=== PATIENT | male | born 1955 | race Caucasian/White ===

== ENCOUNTER 2021-05-21 14:51 | Inpatient (IN) | payer BC, SELFPAY ==
[2021-05-21] VITALS (36 sets, daily range): BP systolic 109–176; BP diastolic 66–94; PULSE 60–106; RESP 0–27; TEMP 36.6; O2SAT 91–99; BMI 27.1
--- NOTE | 2021-05-21 14:54 | ECG_ITS ---
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 Measurements Intervals [place] Rate: 105 P: 23 [place]: 178 QRS: -3 QRSD: 86 T: 33 QT: 335 QTc: 444 Interpretive Statements SINUS TACHYCARDIA MINIMAL ST DEPRESSION [0.025+ mV ST DEPRESSION Compared to ECG 04/10/2015 08:59:16 ST (T wave) deviation now present Sinus rhythm no longer present Sinus arrhythmia no longer present Electronically Signed On 05-21-2021 22:10:20 CDT by Reynold Box M.D. [id number]
--- NOTE | 2021-05-21 15:03 | XACV_ITS ---
Ht: 173 cm Wt: 93 kg BSA: 2.14 m2 Gender: Male : 1955 Any Known Allergies: Sulfa Exam Priority: Routine Procedure(s): Procedure Description: Diagnostic procedure Procedure Description: Left Heart Catheterization Diagnostic Cath Status: Emergency Diagnostic Findings * Left Main has no disease. * Left Anterior Descending has no disease. * Circumflex has no disease. * Proximal Left Anterior Descending: medium aneurysm. * Proximal Right Coronary Artery: significant 80% stenosis, GREGORY: 3 flow. * Distal Right Coronary Artery: subtotal occlusion, GREGORY: 3 flow. * Coronary angiography shows right dominance. Interventional Findings * Proximal Right Coronary Artery: 80% stenosis treated with a AB TREK 3.00X15 RX BALLOON, MDLucero R LATRELL 4.0X12 LYSSA, and MDLucero RAMON EUPHORA RX 4.90K20DB BALLOON. 0% residual stenosis, GREGORY: 3 flow. * Distal Right Coronary Artery: 99% stenosis treated with a AB TREK 3.00X15 RX BALLOON, and MDT R LATRELL 3.5X15 LYSSA. 0% residual stenosis, GREGORY: 3 flow. Conclusions 1. There is subtotal occlusion coronary artery disease with one vessel disease. 2. Proximal Right Coronary Artery was treated with a Balloon, Drug Eluting Stent, and Balloon. 3. Distal Right Coronary Artery was treated with a Balloon, and Drug Eluting Stent. 4. There appeared to be no left main and possible separate ostium. Please note that due to tortuosity and not well engagement of catheter subselective thoughts were taken. Proximal mid and distal LAD no significant stenosis however there appeared to be ectasia in the proximal LAD. Diagonal appeared to be without any significant stenosis. Proximal and mid left circumflex appeared to have luminal irregularity. Please note that due to patient not being cooperative I stop the procedure here as primary culprit lesion in the proximal and distal RCA was treated with drug-eluting stents.. Recommendations * 1-Return to inpatient for close monitoring and routine cath care2-Risk factor modification for secondary prevention3-Statin with LDL goal <70 mg/dl, aspirin 81 mg [id number]-Abzzcox was pre-loaded with 180mg of Brillinta. Continue Brillinta 90mg p.o. twice daily for at least one year. We will assess at the end of one year again to continue it further or not5-Continue optimal medical management6-Follow up with Dr. Bui in four weeks and with your PCP in one week. Diagnostic RX Recommendation: PCI w/o planned CABG Pressures Phase:Rest AO : 118 / 75 ( 96 ) @ 2:28:00 PM 115 / 72 ( 93 ) @ 2:34:00 PM Clinical Evaluation EBL: 5mL-10mL Procedural Details Admit Source: Emergency department. Pre-Procedure Time Out. Identified patient by full name and date of as verbalized by the patient/guarantor. Does the consent match the physician's order: N/A Emergent. Accurate & Complete Informed Consent: N/A Emergent. Inpatient/Outpatient History & Physical on Chart: N/A Emergent. If H&P is completed, is and addenduem needed: N/A Emergent; If yes, is the addendum complete: N/A Emergent. Visualize and Verify Site with Patient/Guarantor: N/A. Relevant Radiology Images available: N/A Emergent. Pre-op teaching completed and patient verbalized understanding. The risks, benefits, and alternatives of sedation and/or procedure were discussed by physician. The patient agrees to continue. Procedure started. Correct patient, site and procedure confirmed by cath team. PERRLA. Strong, equal hand bean roaster bilaterally. Lungs clear x 5 lobes. IV Site on Arrival: 18 gauge in the right anticubital. Oxygen started at 2liters/min via nasal canula. bilateral groins was prepped with chloroprep then draped in the usual sterile fashion. right radial was prepped with chloroprep then draped in the usual sterile fashion. Physician notified. Baseline sample Acquired. HR: 92 BPM. Physician arrived. Physician scrubbed in. Immediate Pre-Procedure Time Out. Correct Patient: Yes; Correct Procedure: Yes; Correct Site: Yes; Correct Patient Position: Yes; Correct Supplies: Yes; Dried Flammable Prep: Yes; Blood Products Available: N/A;. Lidocaine 1% infiltrated to the right radial. Arterial access obtained. A 6 stateless TIG catheter in over wire. Multiple views taken of right coronary artery. Catheter out. A 6 stateless JR4 catheter in over wire. AP pads applied to patient. [place] guidewire was advanced through the guide catheter to lesion in the distal RCA. Inflation number : 1 A AB TREK 3.00X15 RX BALLOON was prepped and advanced across the Dist RCA , then inflated to 14 ROCIO for 0:14 seconds. Inflation number: 1 The AB TREK 3.00X15 RX BALLOON was reinflated across the Prox RCA, to 14 ROCIO for 0:10 seconds. Inflation number: 2 The AB TREK 3.00X15 RX BALLOON was reinflated across the Prox RCA, to 14 ROCIO for 0:10 seconds. Balloon out. Inflation Number : 2 A MDT R LATRELL 3.5X15 LYSSA -Lot Number# [id number] exp date: 02-19-2024 was prepped and advanced across the Dist RCA. The stent was deployed at 12 ROCIO for 0:18 seconds. Stent balloon out over wire. Results checked. Cruz Hughes RN updated . Inflation Number : 3 A MDT R LATRELL 4.0X12 LYSSA -Lot Number# [id number] exp date: 12-05-2022 was prepped and advanced across the Prox RCA. The stent was deployed at 10 ROCIO for 0:20 seconds. Stent balloon out over wire. Inflation number : 4 A MDT NC EUPHORA RX 4.27C40LG BALLOON was prepped and advanced across the Prox RCA , then inflated to 12 ROCIO for 0:11 seconds. Inflation number: 6 The MDT NC EUPHORA RX 4.68E03LS BALLOON was reinflated across the Prox RCA, to 12 ROCIO for 0:30 seconds. checking results. Balloon out. Wire out. A 6 stateless JL4 catheter in over wire. ACT drawn. Results 249 seconds. Therapeutic limits - pre-heparin administration 90-150 seconds and monitoring heparin during a vascular procedure >250 seconds. Multiple views taken of left coronary artery. Catheter out. A 6 stateless Sebastian catheter in over wire. Catheter out. TR band placed. Hemostasis obtained. Post Procedure: Pulses reassessed and unchanged. PERRLA. Strong, equal hand bean roaster bilaterally. No VTE prophylaxis required. Medication's Wasted: Lidocaine 1% = 16 mL. Medication's Wasted: Heparin = 2000 units. Medication's Wasted: Nitro = 49.8 mg. Medication's Wasted: Other = fentanyl 50 mg. Total IV fluids: 67 mL. Contrast type used: Omnipaque 300 mgI/mL, 500 mL bottle. Contrast Material : Omnipaque 318 ml. Complications: none. PCI Indication: STEMI. Post-op diagnosis: severe dist RCA stenosis. Estimated blood loss: 5mL-10mL. Procedure completed. A TR Band was successful obtaining hemostatsis at the Right Radial artery insertion site. Patient transferred by wheelchair to CPRU. Vital chart was stopped. Access Site Site: Right Radial artery Sheath Size: 6 Fr Hemostasis Method: TR Band Hemostasis Success: Successful Procedure Medications Start: 3:13 PM Stop: 3:13 PM Medication: Brilinta Amount: 180 mg Route: P.O. Start: 3:14 PM Stop: 3:14 PM Medication: Versed Amount: 1 mg Route: I.V. Start: 3:14 PM Stop: 3:14 PM Medication: Fentanyl Amount: 50 mcg Route: I.V. Start: 3:16 PM Stop: 3:16 PM Medication: Versed Amount: 1 mg Route: I.V. Start: 3:17 PM Stop: 3:17 PM Medication: Nitrogylcerin Amount: 200 mcg Route: I.A. Start: 3:17 PM Stop: 3:17 PM Medication: Heparin Amount: 6000 units Route: I.V. Start: 3:22 PM Stop: 3:22 PM Medication: Heparin Amount: 3000 units Route: I.V. Start: 3:26 PM Stop: 3:26 PM Medication: Aggrastat 12.5 mg/250 mL Amount: 47 ml Route: I.V. bolus Start: 3:27 PM Stop: 3:27 PM Medication: Versed Amount: 1 mg Route: I.V. Start: 3:27 PM Stop: 3:27 PM Medication: Fentanyl Amount: 50 mcg Route: I.V. Start: 3:29 PM Stop: 3:29 PM Medication: Aggrastat 12.5 mg/250 mL Amount: 16.9 ml/hr Route: I.V. drip Start: 3:34 PM Stop: 3:34 PM Medication: Versed Amount: 1 mg Route: I.V. Start: 3:43 PM Stop: 3:43 PM Medication: Fentanyl Amount: 50 mcg Route: I.V. Start: 3:45 PM Stop: 3:45 PM Medication: Versed Amount: 1 mg Route: I.V. Start: 3:59 PM Stop: 3:59 PM Medication: Versed Amount: 1 mg Route: I.V. I, the attending physician, have reviewed and verified all procedure medications. Yes, all medications given per verbal order Report Signatures Finalized by Jaymie Bui MD on 06/03/2021 10:24 PM
--- NOTE | 2021-05-21 15:04 | ED_ITS ---
HPI - Chest Pain General: Chief Complaint: Chest Pain Stated Complaint: stemi alert Time Seen by Provider: 05/21/21 14:54 History of Present Illness: HPI narrative: 65-year-old male history of hypertension presents by EMS with chest pain. States pain started 3 AM. This pressure-like does not radiate into the back. Does report some shortness of breath. Denies fever nausea or vomiting. Per EMS EKG reveals inferior STEMI. Patient was given nitroglycerin and full strength aspirin prior to call to ER was made. Instructed them not to give further nitro. 500 cc bolus of normal saline provided. Patient is otherwise hemodynamically stable. On arrival to the ER patient complains of continued chest pain. Review of Systems Narrative: - CONSTITUTIONAL: Denies weight loss, fever and chills. - HEENT: Denies changes in vision and hearing. - RESPIRATORY: Denies SOB and cough. - CV: As above - GI: Denies abdominal pain, nausea, vomiting and diarrhea. - : Denies dysuria and urinary frequency. - MSK: Denies myalgia and joint pain. - SKIN: Denies rash and pruritus. - NEUROLOGICAL: Denies headache, weakness, numbness and syncope. - PSYCHIATRIC: Denies suicidal ideation Physical Exam Narrative: EXAM NARRATIVE: - GENERAL: Alert and oriented x 3. No acute distress. Well-nourished. - EYES: EOMI. Anicteric. - HENT: Atraumatic, no C-spine tenderness. Moist mucous membranes. No scleral icterus. No cervical lymphadenopathy. - LUNGS: Clear to auscultation bilaterally. No accessory muscle use. Equal lung sounds bilaterally. No respiratory distress. - CARDIOVASCULAR: Regular rate and rhythm. No murmur. No JVD. - ABDOMEN: Soft, non-tender and non-distended. Negative CVA tenderness bilaterally, no rebound or guarding, negative Crawford sign. No palpable masses. - EXTREMITIES: No edema. Non-tender. - SKIN: No rashes or lesions. Warm. - NEUROLOGIC: No meningismus or focal neurological deficits. CN II-XII grossly intact. - PSYCHIATRIC: Cooperative. Appropriate mood and affect. Course Vital Signs: Vital signs: Vital Signs Pulse Rate 97 05/21/21 14:59 Respiratory Rate 18 05/21/21 14:59 Blood Pressure 130/80 05/21/21 14:59 Pulse Oximetry 97 05/21/21 14:59 MDM - Chest Pain MDM Narrative: Medical decision making narrative: 65-year-old male history of hypertension presents with chest pain by EMS. EKG by EMS concerning for inferior STEMI. Aspirin provided in route. Upon arrival nitroglycerin was already provided and EMS were instructed not to provide for nitroglycerin. He is he medically stable afebrile nontoxic-appearing. Complains of pressure-like chest pain. EKG by EMS is concerning for inferior STEMI. Discussed with cardiology who came by to evaluate patient at bedside and will take him to Warehouse Operations Manager. Remainder of lab work ordered. Also per cardiology recommendation Brilinta was ordered. Further evaluation management per cardiology team. EKG Data^: EKG 1: Other EKG comments: ST elevations in 2 3 and aVF with anterior depressions, concerning for inferior STEMI. Critical Care Time Critical Care Time: Critical Care Time: Yes Total Critical Care Time: 30 Attestation: This case had a high probability of a clinically significant, sudden, or life threatening deterioration of this patient's condition which required my full and direct attention, intervention and personal management. 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
[2021-05-21 15:26] LABS: Basophils # 0.1 10^3/uL (0.0-0.1); Basophils % 0.5 %; Eosinophils % 0.2 %; Hematocrit 40.6 % (42.0-52.0); Hemoglobin 13.6 g/dL (11.7-16.6); Lymphocytes # 1.4 10^3/uL (0.8-4.8); Lymphocytes % 10.4 %; Mean Corpuscular HGB Conc 33.5 g/dL (30.0-36.0); Mean Corpuscular Hemoglobin 29.4 pg (28.0-34.0); Mean Corpuscular Volume 87.9 fl (80-94); Monocytes # 0.9 10^3/uL (0.2-0.9); Monocytes % 6.4 %; Neutrophils # 11.18 10^3/uL (1.8-7.7); Neutrophils % 82.1 %; Nucleated Red Blood Cells % 0 %; Platelet Count 260 10^3/cmm (130-400); Red Blood Count 4.62 10^6/uL (4.1-5.3); Red Cell Distribution Width 12.5 % (12.1-15.1); White Blood Count 13.6 10^3/uL (4.0-10.0)
[2021-05-21 15:38] LABS: INR 1.03 (0.8-1.2)
[2021-05-21 15:39] LABS: Partial Thromboplastin Time 25.4 SECONDS (23.9-36.7)
[2021-05-21 15:47] LABS: Troponin(5th) Baseline 25 ng/L (0-15)
[2021-05-21 16:13] LABS: Alanine Aminotransferase 35 U/L (0-41); Albumin Level 4.5 g/dL (3.5-5.2); Alkaline Phosphatase 54 IU/L (40-130); Aspartate Amino Transferase 30 U/L (0-40); Blood Urea Nitrogen 32 mg/dL (8-23); Calcium 9.6 mg/dL (8.5-10.5); Carbon Dioxide 21 mmol/L (22-29); Chloride 102 mmol/L (98-107); Globulin 2.9 g/dL (1.3-4.6); Glomerular Filtration Rate 33.8 mL/min (90-130); Glucose 214 mg/dL (65-115); NT Pro B Type Natriuretic Pept 124 pg/mL (0-125); Osmolality Calculated 303 mOsm/kg (285-295); Sodium 140 mmol/L (136-145); Total Bilirubin 0.6 mg/dL (0.15-1.2); Total Protein 7.4 g/dL (6.6-8.7)
--- NOTE | 2021-05-21 16:15 | PC.NURSE ---
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 Pt attached to bedside monitor. Pt is alert and oriented, denies pain. TR band to right wrist, site asymptomatic. radial pulse palpable. Pt educated on right arm restrictions. at bedside.
--- NOTE | 2021-05-21 16:54 | ECG_ITS ---
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 Measurements Intervals [place] Rate: 80 P: 33 [place]: 204 QRS: -19 QRSD: 88 T: 15 QT: 373 QTc: 432 Interpretive Statements SINUS RHYTHM LOW QRS VOLTAGE IN PRECORDIAL LEADS [QRS DEFLECTION < 1.0 mV IN CHEST LEADS] ST ELEVATION, CONSIDER INFERIOR INJURY [MARKED ST ELEVATION W/O NORMALLY INFLECTED T-WAVE IN II/aVF] ACUTE ME Compared to ECG 05/21/2021 14:56:41 Low QRS voltage now present Myocardial infarct finding now present Sinus tachycardia no longer present ST (T wave) deviation still present Electronically Signed On 05-21-2021 22:20:56 CDT by Reynold Box M.D. [id number]
--- NOTE | 2021-05-21 19:19 | PM.HP ---
Providers/Chief Complaint Primary Care Provider: Kelsey Vázquez APN Chief Complaint: stemi alert History of Present Illness Thee Chan is a 65 year old male past medical history significant for continuous tobacco abuse obesity strong family history of coronary artery disease denies diabetes mellitus presented with off-and-on chest pain with become more consistent for the last couple of hours it is the reason patient activated 911. Initial EKG strip by EMS showed ST elevation in the inferior leads with reciprocal changes. It is the reason ST elevation OK was activated I saw immediately patient in the ER at that time he continues to have chest pain but EKG changes were resolved most likely secondary to nitroglycerin. He was taken emergently to the Academic Affairs Dean he was noted to have significant 99% thrombotically occluded distal RCA and 85% proximal eccentric RCA. Proximal and distal stent was placed, proximal stent was postdilated with noncompliant balloon. Excellent GREGORY-3 flow was restored. Due to severe tortuosity left main was not well engaged however it appeared to me that patient has LAD and circumflex ostium. LAD is ectatic but without significant disease diagonal vessel is without significant disease circumflex not well visualized however appears to have no significant stenosis. Since we have fixed the culprit vessels patient appeared to be stable and because the fact he is given contrast we decided to finish the procedure. He was loaded with ticagrelor started on Aggrastat and transferred to CSU. He was noted to have high creatinine 2.0 therefore will continue IV fluid 100 mL/h for next 24 hours. Will repeat Chem-7 in the morning I will ask for echocardiogram in the morning as well to assess LV function. Review of Systems Narrative: - CONSTITUTIONAL: Denies weight loss, fever and chills. - HEENT: Denies changes in vision and hearing. - RESPIRATORY: Denies SOB and cough. - CV: As above - GI: Denies abdominal pain, nausea, vomiting and diarrhea. - : Denies dysuria and urinary frequency. - MSK: Denies myalgia and joint pain. - SKIN: Denies rash and pruritus. - NEUROLOGICAL: Denies headache, weakness, numbness and syncope. - PSYCHIATRIC: Denies suicidal ideation Vitals/I&O/Wt Last Vital Signs Pulse 70 05/21/21 18:01 Resp 24 H 05/21/21 17:30 BP 142/91 05/21/21 17:30 Pulse Ox 97 05/21/21 18:01 Weight last 48 hrs Weight 200 lb Physical Exam Narrative: EXAM NARRATIVE: GENERAL: Patient is alert, awake and oriented x3. NECK: No jugular vein distension. HEENT: No cyanosis. No icterus. No pallor. HEART: Regular S1 and S2. No murmur, rub or gallop. LUNGS: Clear to auscultate bilaterally. ABDOMEN: Soft, nontender and nondistended. Positive bowel sounds. No guarding, rebound or tenderness. CENTRAL NERVOUS SYSTEM: Grossly nonfocal. EXTREMITIES: Lower extremities without edema bilaterally. Data : 05/21/21 15:05 05/21/21 15:05 A&P Assessment and plan (1) ST elevation myocardial infarction (STEMI): Status: Acute Qualifiers: Involved coronary artery: right coronary artery Qualified Code(s): I21.11 - ST elevation (STEMI) myocardial infarction involving right coronary artery (2) Acute renal failure (ARF): Patient has acute on chronic renal failure admitted with baseline creatinine of 2.0. We will continue IV fluid at 1 mL/h for next 24 hours. Will ask for Chem-7 in the morning. Patient baseline creatinine is unknown however this was at the time of presentation to therefore I resume that he has underlying renal disease Status: Acute Qualifiers: Acute renal failure type: with other specified pathological lesion Qualified Code(s): N17.8 - Other acute kidney failure Additional A&P Information As above patient underwent urgent left heart cath noted to have proximal and distal RCA which were the culprit vessel treated with 2 drug-eluting stent. Continue aspirin statin and beta-triston over next 24 hours will ask for echocardiogram. 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
[2021-05-21 20:07] LABS: Glucose Point of Care 130 mg/dL (70-110)
--- NOTE | 2021-05-21 20:54 | ECG_ITS ---
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1955 Requested By: Phillip Pantoja Order Number: [id number] Reading MD: ISAC RICHARDS Measurements Intervals [place] Rate: 62 P: 30 [place]: 219 QRS: -22 QRSD: 93 T: 36 QT: 424 QTc: 431 Interpretive Statements SINUS RHYTHM WITH FIRST DEGREE AV BLOCK BORDERLINE LEFT AXIS DEVIATION [QRS AXIS < -20] Compared to ECG 05/21/2021 16:46:01 First degree AV block now present ST (T wave) deviation no longer present Myocardial infarct finding no longer present Electronically Signed On 05-22-2021 20:03:58 CDT by ISAC RICHARDS [email or web address] [email or web address].[employer]/store/OM/[id number]
[2021-05-22] VITALS (24 sets, daily range): BP systolic 123–161; BP diastolic 73–94; PULSE 55–72; RESP 2–24; TEMP 36.3–36.8; O2SAT 90–98
[2021-05-22] MEDS: sodium chloride 0.9% 1,000 ML 100 ML IV ×2 (00:03→09:52)
[2021-05-22 04:50] LABS: Basophils # 0.1 10^3/uL (0.0-0.1); Basophils % 0.7 %; Eosinophils # 0.4 10^3/uL (0.0-0.8); Eosinophils % 4.7 %; Hematocrit 37.9 % (42.0-52.0); Hemoglobin 12.8 g/dL (11.7-16.6); Lymphocytes # 1.8 10^3/uL (0.8-4.8); Lymphocytes % 24.8 %; Mean Corpuscular HGB Conc 33.8 g/dL (30.0-36.0); Mean Corpuscular Hemoglobin 29.5 pg (28.0-34.0); Mean Corpuscular Volume 87.3 fl (80-94); Mean Platelet Volume 10.7 fL (7.4-10.4); Monocytes # 0.8 10^3/uL (0.2-0.9); Monocytes % 11.1 %; Neutrophils # 4.29 10^3/uL (1.8-7.7); Neutrophils % 58.3 %; Nucleated Red Blood Cells % 0 %; Platelet Count 215 10^3/cmm (130-400); Red Blood Count 4.34 10^6/uL (4.1-5.3); Red Cell Distribution Width 12.4 % (12.1-15.1); White Blood Count 7.4 10^3/uL (4.0-10.0)
[2021-05-22 05:10] LABS: Anion Gap 14.4 (5-19); Blood Urea Nitrogen 28 mg/dL (8-23); Carbon Dioxide 22 mmol/L (22-29); Chloride 102 mmol/L (98-107); Glomerular Filtration Rate 43.7 mL/min (90-130); Glucose 103 mg/dL (65-115); Osmolality Calculated 286 mOsm/kg (285-295); Potassium 3.4 mmol/L (3.5-5.1); Sodium 135 mmol/L (136-145)
[2021-05-22 06:25] LABS: Glucose Point of Care 116 mg/dL (70-110)
--- NOTE | 2021-05-22 08:25 | PC.CHAP ---
Pastoral Care Encounter/Spiritual Assessment Type of Contact [] Declined junk dealer visit [] Patient/Family/Request visit [] Outpatient visit [] Follow-up visit [] Physician referral [] Code/Alert [x] Routine visit [] Staff referral [] Actively dying [] Patient sleeping [] Family support [] [] Out of room [] Palliative care [] [] Receiving care in room [] Pre-surgical visit [] Trauma [] Long length of stay [] ICU visit [] Other: Relational/Emotional Strength [x] Patient feels connected with others/family/visitors/staff [] Distress [] Loneliness/isolation [] Abandonment Spirituality of Patient [x] Person of Soco [] Attends Zoroastrianism of their Soco [] Believes in Prayer [] Reads Bible or Anglican materials [] There are Spiritual issues to be addressed Mannequin Wig Maker Interventions [] Prayer [x] Active listening [x] Non-anxious presence [x] Spiritual/emotional support [] Crisis/trauma care [] Spiritual counseling [] Bereavement support [] Provided bereavement packet [] Provided Bible/devotional materials [] Provided toy/stuffed animal, coloring book to patient or family member [] Provided Communion [] Anointing/[place] [] Salvation [x] Completed spiritual assessment [] Other: Impact on Illness or Injury [] Angry [] Fearful [] Anxious [] Often cries [] Exhaustion [] Unable to work [] Unable to attend muslim [] Unable to walk/stand [] Unable to read [] Unable to drive [] Unable to eat/drink [] Unable to sleep [] Unable to be with family [] Patient intubated [] Other: Summary Pt had heart attack yesterday while at work and was rushed to hospital. Had two stints put in. Feeling much better today and hoping to go home. Pt has a family history of heart attack and lost two brothers at a relative young age due to heart. Has family in area who are concerned about it and has made contact with him while in hospital. Pt stated he is a person of soco and prepared for when it comes. The conversation was cut short as staff arrived for treatment. Time spent with patient 10m
--- NOTE | 2021-05-22 08:33 | PC.PHAR ---
pt states he takes care of his own medications-pt states he just started taking olmesartan 5mg hs rx filled on 05/18/21 5d/s-pt states he takes metformin 500mg bid ext med history shows last filled on 01/10/21 30d/s for 1000mg bid-notes are made in the pharmacy comments
--- NOTE | 2021-05-22 09:01 | USCV_ITS ---
Dustin Thee Age: 65 Gender: M : 1955 Exam Date: 05/22/2021 20:31 Ordering Phys: Jaymie Bui MD ([email or web address]) Technologist: Arianna Price Exam Location: [facility] [place] Indication: STEMI BP: 133 / 81 HR: 63 Rhythm: Sinus Technical Quality: Fair MEASUREMENTS (Male / Female) Normal Values 2D ECHO LV Diastolic Diameter PLAX 4.4 cm 4.2 - 5.9 / 3.9 - 5.3 cm LV Systolic Diameter PLAX 3.1 cm LV Chamber Size 4.6 cm IVS Diastolic Thickness 1.5 cm 0.6 - 1.0 / 0.6 - 0.9 cm IVS Systolic Thickness 1.3 cm LVPW Diastolic Thickness 1.1 cm 0.6 - 1.0 / 0.6 - 0.9 cm LVPW Systolic Thickness 1.4 cm RV Chamber Size 2.0 cm LVOT Diameter 2.0 cm LV Ejection Fraction 2D Teich 57.9 % LA Diameter 3.6 cm LA Width 2.9 cm LA Height 5.1 cm RA Width 2.0 cm RA Height 4.5 cm Aorta at Sinotubular Diameter 2.8 cm M-MODE LV Diastolic Diameter MM 5.0 cm 4.2 - 5.9 / 3.9 - 5.3 cm LV Systolic Diameter MM 3.2 cm LV Ejection Fraction MM Teich 64.9 % IVS Diastolic Thickness MM 1.2 cm 0.6 - 1.0 / 0.6 - 0.9 cm IVS Systolic Thickness MM 1.5 cm LVPW Diastolic Thickness MM 0.9 cm 0.6 - 1.0 / 0.6 - 0.9 cm LVPW Systolic Thickness MM 1.3 cm RV Diastolic Diameter MM 1.4 cm Aortic Annulus Diameter 3.0 cm LA Ao Ratio MM 1.5 MV E Point Septal Separation 0.6 cm DOPPLER AV Peak Velocity 114.0 cm/s LVOT Peak Velocity 83.0 cm/s AV Area Cont Eq vti 2.5 cm squared AV Area Cont Eq pk 2.4 cm squared MV Area PHT 3.7 cm squared Mitral E to A Ratio 0.8 MV E' Velocity 31.0 cm/s Mitral E to MV E' Ratio 7.2 Mitral E to LV E' Lateral Ratio 7.5 Mitral E to LV E' Septal Ratio 7.0 TV Peak E Velocity 40.0 cm/s Right Atrial Pressure 3.0 mmHg PV Peak Velocity 45.0 cm/s RV Acceleration Time 0.1 s RV Ejection Time 0.3 s RV AcT/ET 0.3 FINDINGS Left Ventricle Normal left ventricular cavity size. Normal left ventricular systolic function. There appeared to be inferior wall hypokinesis.left ventricular ejection fraction is estimated at 55 %. Grade I/IV diastolic dysfunction (abnormal relaxation filling pattern), normal to mildly elevated filling pressures. Right Ventricle The right ventricle is normal in size and function. RVSP could not be calculated due to incomplete tricuspid regurgitation velocity profile. Right Atrium The right atrium is normal in size. Left Atrium The left atrium is normal in size. Mitral Valve Thickened mitral valve. No mitral valve stenosis. Mild mitral valve regurgitation. Aortic Valve Mild aortic valve calcification. No aortic valve stenosis. No aortic valve regurgitation. Tricuspid Valve Mild tricuspid valve regurgitation. Pulmonic Valve Structurally normal pulmonic valve without significant stenosis. There is no pulmonic regurgitation. Pericardium Normal pericardium without effusion. Aorta Normal ascending aorta dimension. CONCLUSIONS 1-Normal left ventricular cavity size. Normal left ventricular systolic function. There appeared to be inferior wall hypokinesis.left ventricular ejection fraction is estimated at 55 %. Grade I/IV diastolic dysfunction (abnormal relaxation filling pattern), normal to mildly elevated filling pressures. 2-No significant valve abnormalities. 3-There is no pericardial effusion. 4-The right ventricle is normal in size and function. RVSP could not be calculated due to incomplete tricuspid regurgitation velocity profile. 5-Right atrial pressure is around 5 mm of mercury. 6-There are no prior echocardiogram studies to compare. Jaymie Bui MD (Electronically Signed) Final Date: 22 May 2021 20:12 S
--- NOTE | 2021-05-22 09:05 | PM.PN ---
Subjective Subjective: Interval history: Status post 2 drug-eluting stent in proximal distal RCA for ST elevation CO. Culprit lesion was distal RCA with thrombus in it. No overnight event he is feeling much better this morning. Medications: Reviewed: Yes Vitals/I&O/Wt Last Vital Signs Temp 97.6 F 05/22/21 03:26 Pulse 63 05/22/21 06:00 Resp 17 05/22/21 03:26 BP 133/81 05/22/21 03:26 Pulse Ox 96 05/22/21 03:26 05/21/21 05/22/21 05/22/21 22:59 06:59 14:59 Intake Total 240 / 240 240 / 480 Output Total 350 / 350 Balance 240 / 240 -110 / 130 Weight last 48 hrs Weight 200 lb Physical Exam Narrative: EXAM NARRATIVE: GENERAL: Patient is alert, awake and oriented x3. NECK: No jugular vein distension. HEENT: No cyanosis. No icterus. No pallor. HEART: Regular S1 and S2. No murmur, rub or gallop. LUNGS: Clear to auscultate bilaterally. ABDOMEN: Soft, nontender and nondistended. Positive bowel sounds. No guarding, rebound or tenderness. CENTRAL NERVOUS SYSTEM: Grossly nonfocal. EXTREMITIES: Lower extremities without edema bilaterally. Data : 05/22/21 04:30 05/22/21 04:30 A&P Assessment and plan (1) ST elevation myocardial infarction (STEMI): Status post drug-eluting stent to proximal and distal RCA, nonobstructive coronary disease of the left side system with ectasia in the LAD otherwise no significant lesion noted except separate ostium and difficult engagement. Will add beta-triston EUGENIO inhibitor, we will continue aspirin statin and ticagrelor. Echocardiogram to assess LV function lipid profile will be also today Status: Acute Qualifiers: Involved coronary artery: right coronary artery Qualified Code(s): I21.11 - ST elevation (STEMI) myocardial infarction involving right coronary artery (2) Acute renal failure (ARF): Continue IV fluid creatinine started improving from 2.0-1.6 today. Will hold onto EUGENIO inhibitor for now Status: Acute Qualifiers: Acute renal failure type: with other specified pathological lesion Qualified Code(s): N17.8 - Other acute kidney failure Additional A&P Information As above patient underwent urgent left heart cath noted to have proximal and distal RCA which were the culprit vessel treated with 2 drug-eluting stent. Continue aspirin statin and beta-triston over next 24 hours will ask for echocardiogram. Continue ticagrelor for next at least 1 year per the plan repairs as per progress of the patient Attestations Medical Necessity Statement*: Patient require continuation hospitalization for above defined care. Coding Level of Care Code Established Pt Acute Battery Charger Conveyor Line for Keira Martin Patient Type Established History Detailed Exam Detailed Medical Decision Making Moderate Complexity Diagnoses ST elevation myocardial infarction (STEMI) I21.11 Involved coronary artery: right coronary artery Acute renal failure (ARF) N17.8 Acute renal failure type: with other specified pathological lesion
[2021-05-22 09:23] LABS: Chol HDL Ratio 7.92 mg/dL (1.0-5.00); Cholesterol 206 mg/dL (0-200); HDL Cholesterol 26 mg/dL (60-100); LDL Cholesterol Calculated 144 mg/dL (50-129); LDL HDL Ratio 5.54 RATIO (0.00-3.22); Triglycerides 181 mg/dL (0-150)
[2021-05-22] MEDS: ticagrelor 90 mg Tablet PO ×2 (09:50→18:20)
[2021-05-22] MEDS: aspirin 81 mg EC Tablet PO (09:51)
[2021-05-22] MEDS: metoprolol succinate ER (24 HR) 25 mg Tablet 12.5 MG PO (09:51)
[2021-05-22] MEDS: potassium chloride ER 20 mEq Tablet PO (09:51)
[2021-05-22] MEDS: magnesium hydroxide 30 mL UDC PO (18:20)
[2021-05-22] MEDS: atorvastatin 40 mg Tablet 80 MG PO (20:19)
[2021-05-22] MEDS: sodium chloride 0.9% 1,000 ML 75 ML IV (20:20)
[2021-05-23 04:00] VITALS: BP 148/85; PULSE 71; RESP 14; O2SAT 97
[2021-05-23 04:01] VITALS: PULSE 64
[2021-05-23 06:29] LABS: Anion Gap 11.7 (5-19); Blood Urea Nitrogen 23 mg/dL (8-23); Calcium 8.8 mg/dL (8.5-10.5); Carbon Dioxide 24 mmol/L (22-29); Chloride 100 mmol/L (98-107); Glucose 113 mg/dL (65-115); Osmolality Calculated 278 mOsm/kg (285-295); Potassium 3.7 mmol/L (3.5-5.1); Sodium 132 mmol/L (136-145)
[2021-05-23 08:00] VITALS: BP 174/84; PULSE 68; RESP 18; O2SAT 97
[2021-05-23] MEDS: ticagrelor 90 mg Tablet PO (09:57)
[2021-05-23] MEDS: metoprolol succinate ER (24 HR) 25 mg Tablet 12.5 MG PO (09:58)
[2021-05-23] MEDS: aspirin 81 mg EC Tablet PO (09:58)
--- NOTE | 2021-05-23 10:18 | PC.CHAP ---
Pastoral Care Encounter/Spiritual Assessment Type of Contact [] Declined planning manager visit [] Patient/Family/Request visit [] Outpatient visit [] Follow-up visit [] Physician referral [] Code/Alert [x] Routine visit [] Staff referral [] Actively dying [] Patient sleeping [x] Family support [] [] Out of room [] Palliative care [] [] Receiving care in room [] Pre-surgical visit [] Trauma [] Long length of stay [] ICU visit [] Other: Relational/Emotional Strength [] Patient feels connected with others/family/visitors/staff [] Distress [] Loneliness/isolation [] Abandonment Spirituality of Patient [x] Person of Soco [] Attends Restorationist of their Soco [] Believes in Prayer [] Reads Bible or Anglican materials [] There are Spiritual issues to be addressed Brazer Resistance Interventions [x] Prayer [x] Active listening [x] Non-anxious presence [x] Spiritual/emotional support [] Crisis/trauma care [] Spiritual counseling [] Bereavement support [] Provided bereavement packet [] Provided Bible/devotional materials [] Provided toy/stuffed animal, coloring book to patient or family member [] Provided Communion [] Anointing/[place] [] Salvation [x] Completed spiritual assessment [] Other: Impact on Illness or Injury [] Angry [] Fearful [] Anxious [] Often cries [] Exhaustion [] Unable to work [] Unable to attend scientology [] Unable to walk/stand [] Unable to read [] Unable to drive [] Unable to eat/drink [] Unable to sleep [] Unable to be with family [] Patient intubated [] Other: Summary patient feeling stronger... truly likes his doctor.. was allowed to stay over night so both rested well.... Time spent with patient 10 min
--- NOTE | 2021-05-23 12:07 | PM.DCS ---
Discharge Providers Date of Admission: 05/21/21 15:28 Date of Discharge: May 23, 2021 Attending Provider at Admission: Jaymie Bui MD Attending Provider at Discharge: Jaymie Bui MD Primary Care Provider: Kelsey Vázquez APN Diagnoses at Discharge Discharge Diagnosis (1) ST elevation myocardial infarction (STEMI): Status: Acute Qualifiers: Involved coronary artery: right coronary artery Qualified Code(s): I21.11 - ST elevation (STEMI) myocardial infarction involving right coronary artery (2) Acute renal failure (ARF): Status: Acute Qualifiers: Acute renal failure type: with other specified pathological lesion Qualified Code(s): N17.8 - Other acute kidney failure Reason for Visit Reason for Visit: stemi alert Hospital Course Hospital Course 65-year-old male past medical history significant of hypertension hyperlipidemia diabetes mellitus strong family's of coronary disease presented with stuttering chest pain ST elevation CO on the EMS strip later resolved in the ER was taken to the Diplomatic Interpreter/Translator he was noted to have significant distal RCA thrombotic lesion which was 90% occluded along with 80% proximal eccentric stenosis with GREGORY-3 flow. Both lesions were treated with drug-eluting stent. Excellent angiographic result was obtained. LAD and circumflex has an eccentric takeoff with a separate ostium LAD appear to be ectatic vessel but without significant stenosis circumflex was subselectively engaged not well seen in the proximal segment however the mid to distal segment did not show significant stenosis but good flow. Left ventricular ejection fraction turned out to be normal with mild inferior wall hypokinesis. Patient was noted to have renal failure with baseline creatinine of 2.0. Over the next 2 days he was given IV fluid medication were titrated creatinine today is around 1.4 which has been improved. At this point he is doing much better denies any complaint we will discharge him. For now I will discontinue hydrochlorothiazide I will switch from diltiazem to carvedilol, aspirin and Brilinta was given along with high-dose statin. We will monitor his blood pressure as per home log. We will see him back in the clinic in 7 days with Ms. Gina Vergara our cardiology nurse practitioner and with myself in 4 to 6 weeks. Right wrist looks good. He will be going to discharge today. Physical Exam Narrative: EXAM NARRATIVE: GENERAL: Patient is alert, awake and oriented x3. NECK: No jugular vein distension. HEENT: No cyanosis. No icterus. No pallor. HEART: Regular S1 and S2. No murmur, rub or gallop. LUNGS: Clear to auscultate bilaterally. ABDOMEN: Soft, nontender and nondistended. Positive bowel sounds. No guarding, rebound or tenderness. CENTRAL NERVOUS SYSTEM: Grossly nonfocal. EXTREMITIES: Lower extremities without edema bilaterally. Discharge Data Data Completed and Pending: Completed Studies During Hospitalization Category Date Time Status CV. 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 request for service Stat Exams 05/21/21 15:03 Taken Labs from last 24 hours 05/23/21 05:55 Sodium 132 L Potassium 3.7 Chloride 100 Carbon Dioxide 24 Anion Gap 11.7 BUN 23 Creatinine 1.4 H GFR Calculation 51.0 L Glucose 113 Calculated Osmolal ity 278 L Calcium 8.8 Vitals: Last Vital Signs Temp 98.3 F 05/22/21 23:40 Pulse 68 05/23/21 08:00 Resp 18 05/23/21 08:00 BP 174/84 05/23/21 08:00 Pulse Ox 97 05/23/21 08:00 Discharge Plan Discharge Patient Disposition: Home Condition: Stable Prescriptions: New aspirin 81 mg Tablet,Delayed Release (Dr/Ec) 81 mg PO DAILY Qty: 90 RF: 4 Brilinta 90 mg Tablet 90 mg PO BID Qty: 60 RF: 6 atorvastatin 40 mg Tablet 80 mg PO BEDTIME Qty: 30 RF: 4 pantoprazole 40 mg tablet,delayed release (DR/EC) 40 mg PO DAILY 56 Days RF: 2 amlodipine 5 mg tablet 5 mg PO DAILY Qty: 30 RF: 4 carvedilol [Coreg] 6.25 mg tablet 6.25 mg PO BID Qty: 60 RF: 3 Continued metformin 500 mg tablet 500 mg PO BID RF: 0 montelukast 10 mg tablet 10 mg PO QAM RF: 0 olmesartan 5 mg tablet 5 mg PO BEDTIME RF: 0 Discontinued ibuprofen 800 mg tablet 800 mg PO TID PRN (Reason: Pain) RF: 0 diltiazem HCl 180 mg capsule,extended release 24hr 180 mg PO QAM RF: 0 Aspir-81 81 mg Tablet,Delayed Release (Dr/Ec) 81 mg PO QAM RF: 0 triamterene-hydrochlorothiazid 37.5-25 mg tablet 1 tab PO QAM RF: 0 Discharge Orders: Discharge Order (Routine); Ordered 05/23/21 Ordered By: Jaymie Bui Discharge Diet: Diabetic and Low Salt Discharge Activity: Increase activity as tolerated Patient Instructions: Ticagrelor (By mouth), Myocardial Infarction (DC), Left Heart Catheterization (DC), Coronary Angioplasty (DC), Opioid Safety, Post Angiogram Home Care Instructions, Post Heart Attack Stoplight Activity Restrictions/Additional Instructions: No lifting with right hand for next Discharge Attestations Time Spent in Discharge Care*: greater than 30 min Specific Discharge Activities: educating patient Quality Metrics Clinical Quality Measures During this hospital stay, did patient experience: AMI Clinical Trial Participant: No Contraindication to aspirin (AMI): Aspirin given Contraindication to statin: Statin prescribed Coding Level of Care Code Acute g DC note Diagnoses ST elevation myocardial infarction (STEMI) I21.11 Involved coronary artery: right coronary artery Acute renal failure (ARF) N17.8 Acute renal failure type: with other specified pathological lesion
[2021-05-23 12:24] VITALS: BP 174/84; PULSE 68; RESP 18; O2SAT 97
--- NOTE | 2021-05-23 12:49 | PC.NURSE ---
discharge instructions given and explained.pt verb understanding of instructions.coupon for brilinta and stent card given.pt ambulated to exit.spouse to drive pt home.
--- NOTE | 2021-05-24 14:21 | PC.SOCIAL ---
discharge follow up call made, spoke with patient. patient denies chest pain or shortness of breath. reports he is feeling good. patient denies swelling, drainage or redness from incision, reports you can barely see it patient picked up medications from the pharmacy and is taking as prescribed. he didn't receive pantoprazole, development writer called pantoprazole into pharmacy as prescribed on discharge orders. patient is aware of discontinued medications. patient has follow up appointment dates and times written down. advised patient to avoid lifting for the next week. patient denies any questions or concerns.
== END 2021-05-23 12:52 | disposition home or self-care (01) | DRG 247 ==
LOC: ER 14:58 → CCL 15:05 → CSU 17:48
PROVIDERS: Family Medicine; Admitting Provider Internal Medicine Cardiovascular Disease; Emergency Provider Emergency Medicine; PCP Nurse Practitioner Family; Visit Provider Internal Medicine Cardiovascular Disease
PROC: 027035Z Dilation of Coronary Artery, One Artery with Two Drug-eluting Intraluminal Devices, Percutaneous Approach (ICD-10-PCS; principal; 2021-05-21 14:45)
PROC: 027035Z Dilation of Coronary Artery, One Artery with Two Drug-eluting Intraluminal Devices, Percutaneous Approach (ICD-10-PCS; 2021-05-21 14:45)
DX: I21.11 ST elevation (STEMI) myocardial infarction involving right coronary artery (principal); N17.9 Acute kidney failure, unspecified; F17.210 Nicotine dependence, cigarettes, uncomplicated; E66.9 Obesity, unspecified; Z68.27 Body mass index [BMI] 27.0-27.9, adult; Z82.49 Family history of ischemic heart disease and other diseases of the circulatory system; I25.10 Atherosclerotic heart disease of native coronary artery without angina pectoris
CPT/HCPCS: 36415; 36416; 80048; 80053; 80061; 82553; 82962; 83880; 84484; 85025; 85347; 85610; 85730; 93005; 93306; 93454; 99285; C1725; C1769; C1874; C1887; C1894; C9600; J1644; J2250; J3010; J3246; J3490; J7030; J7040; Q9967

== ENCOUNTER → 2021-05-30 14:24 | Outpatient (BNVA) | payer BC, SELFPAY | PROVIDERS: PCP Nurse Practitioner Family; Visit Provider Nurse Practitioner Family | DX: I25.119 Atherosclerotic heart disease of native coronary artery with unspecified angina pectoris (principal); I10 Essential (primary) hypertension | CPT/HCPCS: 80048 ==

== ENCOUNTER → 2021-06-25 10:29 | Outpatient (BNVA) | payer BC, SELFPAY | PROVIDERS: PCP Nurse Practitioner Family; Visit Provider Nurse Practitioner Family | DX: Z20.822 Contact with and (suspected) exposure to COVID-19 (principal); R05.9 Cough, unspecified; R50.83 Postvaccination fever; T50.B95A Adverse effect of other viral vaccines, initial encounter; J40 Bronchitis, not specified as acute or chronic | CPT/HCPCS: 87635 ==

== ENCOUNTER → 2021-07-25 08:26 | Outpatient (BNVA) | payer BC, SELFPAY | PROVIDERS: PCP Nurse Practitioner Family; Visit Provider Nurse Practitioner Family | DX: J06.9 Acute upper respiratory infection, unspecified (principal); J40 Bronchitis, not specified as acute or chronic; R05.9 Cough, unspecified | CPT/HCPCS: 71046; 80053 ==

== ENCOUNTER → 2021-11-01 09:44 | Outpatient (BNVA) | payer MEDICARE, OTHER, SELFPAY | PROVIDERS: PCP Nurse Practitioner Family; Visit Provider Nurse Practitioner Family | DX: Z12.5 Encounter for screening for malignant neoplasm of prostate (principal); E78.5 Hyperlipidemia, unspecified; E11.9 Type 2 diabetes mellitus without complications; I10 Essential (primary) hypertension | CPT/HCPCS: 80053; 80061; 83036; G0103 ==

== ENCOUNTER → 2021-11-05 14:02 | Outpatient (BNVA) | payer MEDICARE, OTHER, SELFPAY | PROVIDERS: PCP Nurse Practitioner Family; Visit Provider Internal Medicine | DX: I25.119 Atherosclerotic heart disease of native coronary artery with unspecified angina pectoris (principal); I10 Essential (primary) hypertension; E78.49 Other hyperlipidemia; Z87.891 Personal history of nicotine dependence | CPT/HCPCS: 99214 ==

== ENCOUNTER → 2022-01-09 17:12 | Outpatient (BNVA) | payer MEDICARE, OTHER, SELFPAY | PROVIDERS: PCP Nurse Practitioner Family; Visit Provider Nurse Practitioner Family | DX: M54.50 Low back pain, unspecified (principal); N18.9 Chronic kidney disease, unspecified; M54.9 Dorsalgia, unspecified | CPT/HCPCS: 80053 ==

== ENCOUNTER → 2022-02-04 08:50 | Outpatient (BNVA) | payer MEDICARE, OTHER, SELFPAY | PROVIDERS: PCP Nurse Practitioner Family; Visit Provider Nurse Practitioner Family | DX: Z11.52 Encounter for screening for COVID-19 (principal); R05.9 Cough, unspecified; E11.9 Type 2 diabetes mellitus without complications; E78.5 Hyperlipidemia, unspecified; I10 Essential (primary) hypertension; I21.3 ST elevation (STEMI) myocardial infarction of unspecified site; J06.9 Acute upper respiratory infection, unspecified; J40 Bronchitis, not specified as acute or chronic; E78.49 Other hyperlipidemia | CPT/HCPCS: 80053; 80061; 83036; 87635 ==

== ENCOUNTER → 2022-02-19 08:23 | Outpatient (BNVA) | payer MEDICARE, OTHER, SELFPAY | PROVIDERS: PCP Nurse Practitioner Family; Visit Provider Nurse Practitioner Family | DX: M54.9 Dorsalgia, unspecified (principal); M25.552 Pain in left hip; M25.551 Pain in right hip; M54.30 Sciatica, unspecified side | CPT/HCPCS: 73502; 73522 ==

== ENCOUNTER → 2022-04-03 14:54 | Outpatient (BNVA) | payer MEDICARE, OTHER, SELFPAY | PROVIDERS: PCP Nurse Practitioner Family; Visit Provider Internal Medicine | DX: I25.119 Atherosclerotic heart disease of native coronary artery with unspecified angina pectoris (principal); I10 Essential (primary) hypertension; E78.49 Other hyperlipidemia | CPT/HCPCS: 99214 ==

== ENCOUNTER → 2022-05-10 10:29 | Outpatient (BNVA) | payer MEDICARE, OTHER, SELFPAY | PROVIDERS: PCP Nurse Practitioner Family; Visit Provider Nurse Practitioner Family | DX: E11.9 Type 2 diabetes mellitus without complications (principal); E78.5 Hyperlipidemia, unspecified; I10 Essential (primary) hypertension; I21.3 ST elevation (STEMI) myocardial infarction of unspecified site; I95.9 Hypotension, unspecified | CPT/HCPCS: 80053; 80061; 83036 ==

== ENCOUNTER → 2022-08-20 17:44 | Outpatient (BNVA) | payer MEDICARE, OTHER, SELFPAY | PROVIDERS: PCP Nurse Practitioner Family; Visit Provider Nurse Practitioner Family | DX: M25.552 Pain in left hip (principal); M25.751 Osteophyte, right hip; M25.752 Osteophyte, left hip; M54.32 Sciatica, left side; E11.9 Type 2 diabetes mellitus without complications; E78.5 Hyperlipidemia, unspecified; I10 Essential (primary) hypertension; I21.3 ST elevation (STEMI) myocardial infarction of unspecified site; E78.49 Other hyperlipidemia | CPT/HCPCS: 80053; 80061; 83036 ==

== ENCOUNTER 2022-09-26 07:38 | Emergency (ER) | payer MEDICARE, OTHER, SELFPAY ==
[2022-09-26 07:46] VITALS: BP 208/99; PULSE 54; RESP 15; TEMP 36.6; O2SAT 99; BMI 29.2
--- NOTE | 2022-09-26 08:01 | ECG_ITS ---
[facility] Test Date: 2022-09-26 Pat Name: Thee Chan Department: Room: Gender: Male Wrapper Sheeter: : 1955 Requested By: Phillip Pantoja Order Number: [id number] Jerrod MD: Hortensia Carias M.D. Measurements Intervals [place] Rate: 53 P: 42 NE: 212 QRS: -28 QRSD: 96 T: 70 QT: 444 QTc: 418 Interpretive Statements SINUS BRADYCARDIA WITH FIRST DEGREE AV BLOCK BORDERLINE LEFT AXIS DEVIATION [QRS AXIS < -20] NONSPECIFIC ST & T-WAVE ABNORMALITY Compared to ECG 05/22/2021 04:22:08 T-wave abnormality now present Sinus rhythm no longer present Electronically Signed On 09-26-2022 8:24:53 JUSTICE PROFESSOR by Hortensia Carias M.D. [id number]
--- NOTE | 2022-09-26 08:01 | XR_ITS ---
WS: [id number] Portable AP upright chest, 09/26/2022 Clinical Data: dyspnea/cough Comparison: Two-view chest, 07/25/2021 Findings: No nodules, masses or effusions are seen. The heart is normal. The pulmonary vascularity is not increased. No pneumonia or pneumothorax is seen. The aortic arch and descending thoracic aorta s how minimal tortuosity and calcification. There are monitor leads on the chest wall. XR/XR chest 1V portable [id number] Impression: Atherosclerosis.
[2022-09-26 08:09] LABS: Basophils % 0.7 %; Eosinophils # 0.2 10^3/uL (0.0-0.8); Eosinophils % 3.2 %; Hematocrit 40.6 % (42.0-52.0); Hemoglobin 13.2 g/dL (11.7-16.6); Lymphocytes # 2.1 10^3/uL (0.8-4.8); Lymphocytes % 37.2 %; Mean Corpuscular HGB Conc 32.5 g/dL (30.0-36.0); Mean Corpuscular Hemoglobin 28.4 pg (28.0-34.0); Mean Corpuscular Volume 87.3 fl (80-94); Mean Platelet Volume 10.2 fL (7.4-10.4); Monocytes # 0.5 10^3/uL (0.2-0.9); Monocytes % 8.5 %; Neutrophils # 2.82 10^3/uL (1.8-7.7); Nucleated Red Blood Cells % 0 %; Platelet Count 207 10^3/cmm (130-400); Red Blood Count 4.65 10^6/uL (4.1-5.3); Red Cell Distribution Width 13.8 % (12.1-15.1); White Blood Count 5.6 10^3/uL (4.0-10.0)
[2022-09-26 08:13] VITALS: BP 208/99
[2022-09-26] MEDS: hyDRALAzine 20 mg/mL INJ 1 mL IVP (08:13)
[2022-09-26] MEDS: losartan 50 mg Tablet 100 MG PO (08:13)
[2022-09-26] MEDS: hydroCHLOROthiazide 25 mg Tablet PO (08:14)
[2022-09-26] MEDS: amlodipine 10 mg Tablet PO (08:14)
[2022-09-26] MEDS: hyDRALAzine 25 mg Tablet 50 MG PO (08:14)
--- NOTE | 2022-09-26 08:26 | ED_ITS ---
HPI - Headache General: Chief Complaint: Headache Stated Complaint: High blood pressure Time Seen by Provider: 09/26/22 08:00 Source: patient Mode of arrival: ambulatory History of Present Illness: 66-year-old male presents to the emergency room complaining of a pounding headache that started a week ago. He took aspirin and Tylenol this morning but he did not take any of his antihypertensives at he did at 2 AM take 5 mg of nebivolol he did not take any of his other blood pressure medications he is not having any chest pain at this time his biggest complaint is that of a headache no difficulty his speech swallowing or vision. No shortness of breath no recent fever sweats or chills vomiting or [id number] medication occasions decongestants or nasal sprays. No trauma or falls recently. MD elicited complaint: headache Onset (ago): week(s) Onset description: gradually Location: diffuse Quality & Timing: throbbing and pulsatile Exacerbating factors: none Relieving factors: nothing Associated symptoms: Deny chest pain, confusion, cough, diaphoresis, eye pain, eye redness, fever(s), lightheadedness, loss of vision, malaise, nausea, neck stiffness, numbness, paresthesias, photophobia, pre-syncope, rash, seizures, short of breath, sound sensitivity, syncope, vomiting or weakness Treatments prior to arrival: other (Nebivolol 5 mg (Bystolic)) Review of Systems Const: Denies: fever(s), malaise or diaphoresis ENMT: Denies: throat pain, ear or mastoid pain, nasal discharge or nasal congestion Card: Denies: chest pain, lightheadedness, syncope or pre-syncope Resp: Denies: dyspnea, productive cough or non-productive cough GI: Denies: nausea or vomiting : Denies: flank pain, dysuria, urinary frequency or urinary urgency Skin/Breast: Denies: rash Neuro: Denies: confusion PFSH ED PFSH: Medical History Coronary artery disease Diabetes mellitus Hyperlipidemia Hypertension Surgical History S/P right coronary artery (RCA) stent placement Family History Mother Myocardial infarction Brother Myocardial infarction Father Myocardial infarction CHF (congestive heart failure) Son Myocardial infarction Other Diabetes Hypertension Social History Smoking and tobacco status: never smoked Alcohol intake: never Physical Exam Const: GENERAL APPEARANCE: cooperative and comfortable ORIENTATION/CONSCIOUSNESS: Yes awake, Yes oriented to person, Yes oriented to place and Yes oriented to time HENMT: COMMON NORMALS: normocephalic, atraumatic and hearing grossly normal bi laterally HEAD & SCALP: normocephalic and atraumatic Eye: DIRECT OPHTHALMOSCOPY: No photophobia Resp: COMMON NORMALS: normal respiratory effort, No retractions, No use of accessory muscles and clear to auscultation bilaterally AUSCULTATION: clear to auscultation bilaterally Cardio: COMMON NORMALS: regular rate, regular rhythm and No murmurs present (Cardio) RATE: regular rate RHYTHM: regular rhythm GI: COMMON NORMALS: Soft to palpation and No hepatosplenomegaly present AUSCULTATION: Yes normoactive bowel sounds PALPATION: Yes Soft to palpation, No Tenderness to palpation present (GI), No Guarding due to palpation present (GI) and Yes No hepatosplenomegaly present Extremity: COMMON NORMALS: normal to inspection, capillary refill normal, no clubbing, cyanosis or edema, no calf tenderness and no pedal edema Neuro: SENSORIUM/ORIENTATION: Yes oriented to person, Yes oriented to place and Yes oriented to time Skin: COMMON NORMALS: no rashes or lesions noted GENERAL SKIN EXAM: no rashes or lesions noted Course Vital Signs: Vital signs: Vital Signs Temperature 97.8 F 09/26/22 07:46 Pulse Rate 68 09/26/22 09:00 Respiratory Rate 13 09/26/22 09:00 Blood Pressure 156/75 09/26/22 09:00 Pulse Oximetry 98 09/26/22 09:00 Oxygen Delivery Me thod 09/26/22 07:46 MDM - Headache Medical Decision Making Blood pressure improved with medications given patient has had a significant change in his medicine list from what we first reviewed when he came to the door after the pharmacy scheduler and seen him he would then switch from carvedilol to Bystolic he was also on olmesartan he did stop the hydralazine and all the other medications we noted when he initially arrived. He states that with those were stopped because he was getting hypotensive. He is pretty significantly hypertensive when he arrived here. Labs imaging and EKG were all reviewed in chart no acute changes noted on EKGs. Will have him continue the olmesartan and the nebivolol. Add amlodipine 10 mg daily follow-up with his doctor within the week. Medical Records I reviewed the patient's medical records. Lab Data I reviewed the patient's lab results. 09/26/22 08:03 09/26/22 08:03 Radiology Impressions Chest X-Ray 09/26/22 08:01 Impression: Atherosclerosis. Head CT 09/26/22 08:42 IMPRESSION: 1. No acute intracranial hemorrhage or edema. 2. Mild atrophy and small vessel ischemic disease. 3. Moderate atherosclerotic calcified plaque in the vertebral arteries and intracranial carotid arteries. Laboratory Results WBC 5.6 10^3/uL (4.0-10.0) 09/26/22 08:03 RBC 4.65 10^6/uL (4.1-5.3) 09/26/22 08:03 Hgb 13.2 g/dL (11.7-16.6) 09/26/22 08:03 Hct 40.6 % (42.0-52.0) L 09/26/22 08:03 MCV 87.3 fl (80-94) 09/26/22 08:03 MCH 28.4 pg (28.0-34.0) 09/26/22 08:03 MCHC 32.5 g/dL (30.0-36.0) 09/26/22 08:03 RDW 13.8 % (12.1-15.1) 09/26/22 08:03 Plt Count 207 10^3/cmm (130-400) 09/26/22 08:03 MPV 10.2 fL (7.4-10.4) 09/26/22 08:03 Neut % (Auto) 50.0 % 09/26/22 08:03 Lymph % (Auto) 37.2 % 09/26/22 08:03 Osborne % (Auto) 8.5 % 09/26/22 08:03 Eos % (Auto) 3.2 % 09/26/22 08:03 Baso % (Auto) 0.7 % 09/26/22 08:03 Neut # (Auto) 2.82 10^3/uL (1.8-7.7) 09/26/22 08:03 Lymph # (Auto) 2.1 10^3/uL (0.8-4.8) 09/26/22 08:03 Osborne # (Auto) 0.5 10^3/uL (0.2-0.9) 09/26/22 08:03 Eos # (Auto) 0.2 10^3/uL (0.0-0.8) 09/26/22 08:03 Baso # (Auto) 0.0 10^3/uL (0.0-0.1) 09/26/22 08:03 Nucleated RBC % (auto) 0 % 09/26/22 08:03 Nucleated RBCs # 0.0 /100WBC 09/26/22 08:03 Sodium 140 mmol/L (136-145) 09/26/22 08:03 Potassium 3.5 mmol/L (3.5-5.1) 09/26/22 08:03 Chloride 104 mmol/L (98-107) 09/26/22 08:03 Carbon Dioxide 24 mmol/L (22-29) 09/26/22 08:03 Anion Gap 15.5 (5-19) 09/26/22 08:03 BUN 15 mg/dL (8-23) 09/26/22 08:03 Creatinine 1.2 mg/dL (0.7-1.2) 09/26/22 08:03 GFR Calculation 60.8 mL/min (90-130) L 09/26/22 08:03 Glucose 108 mg/dL (65-115) 09/26/22 08:03 Calculated Osmolality 291 mOsm/kg (285-295) 09/26/22 08:03 Calcium 9.1 mg/dL (8.5-10.5) 09/26/22 08:03 Total Bilirubin 1.2 mg/dL (0.15-1.2) 09/26/22 08:03 AST 19 U/L (0-40) 09/26/22 08:03 ALT 15 U/L (0-41) 09/26/22 08:03 Alkaline Phosphatase 71 U/L (40-130) 09/26/22 08:03 Total Protein 7.6 g/dL (6.6-8.7) 09/26/22 08:03 Albumin 4.4 g/dL (3.5-5.2) 09/26/22 08:03 Globulin 3.2 g/dL (1.3-4.6) 09/26/22 08:03 Discharge Plan Discharge Patient Disposition: Home Clinical Impression: Hypertension Condition: Stable Prescriptions: New amlodipine 10 mg tablet 10 mg PO DAILY Qty: 30 0RF Discontinued amlodipine 2.5 mg tablet 2.5 mg PO DAILY 90 Days Qty: 90 0RF No Action triamcinolone acetonide 0.5 % cream 1 applic topical BID Qty: 15 2RF fexofenadine-pseudoephedrine [Amanda-D 12 Hour] 60-120 mg tablet extended release 12 hr 1 tab PO Q12H PRN (Reason: allergy symptoms) 15 Days Qty: 30 0RF Brilinta 90 mg tablet 90 mg PO BID Qty: 60 6RF aspirin 81 mg tablet,delayed release (DR/EC) 81 mg PO DAILY Qty: 90 4RF atorvastatin 80 mg tablet 80 mg PO BEDTIME Qty: 90 4RF hydrocodone-acetaminophen 5-325 mg tablet 1 tab PO Q6H PRN (Reason: pain) 7 Days Qty: 20 0RF albuterol sulfate [ProAir HFA] 90 mcg/actuation HFA aerosol inhaler 2 puff inhalation QID PRN (Reason: shortness of breath or wheezing) Qty: 8.5 0RF alprazolam 0.5 mg tablet 0.5 mg PO BID PRN (Reason: anxiety) Qty: 60 0RF Bystolic 10 mg Tablet 10 mg PO DAILY olmesartan 40 mg tablet 40 mg PO BEDTIME Discharge Orders: Discharge ED (Routine); Ordered 09/26/22 Ordered By: Phillip Malone Referrals: Arianna Priest NP [Primary Care Provider] - Patient Instructions: Opioid Safety, Pain Management Activity Restrictions/Additional Instructions: You were seen today for elevated blood pressure. Blood pressure responded well to the medications given. See the medication list on your discharge sheet for the medications you should be taking. Follow-up with your primary care doctor within the week to recheck your blood pressure. Your lab test and imaging and EKGs were otherwise unremarkable. Coding Level of Care Code ED Core Blower for Chg Fwd Exam Comprehensive
[2022-09-26 08:29] LABS: Alanine Aminotransferase 15 U/L (0-41); Albumin Level 4.4 g/dL (3.5-5.2); Alkaline Phosphatase 71 U/L (40-130); Anion Gap 15.5 (5-19); Aspartate Amino Transferase 19 U/L (0-40); Blood Urea Nitrogen 15 mg/dL (8-23); Calcium 9.1 mg/dL (8.5-10.5); Carbon Dioxide 24 mmol/L (22-29); Chloride 104 mmol/L (98-107); Globulin 3.2 g/dL (1.3-4.6); Glomerular Filtration Rate 60.8 mL/min (90-130); Glucose 108 mg/dL (65-115); Osmolality Calculated 291 mOsm/kg (285-295); Potassium 3.5 mmol/L (3.5-5.1); Sodium 140 mmol/L (136-145); Total Bilirubin 1.2 mg/dL (0.15-1.2); Total Protein 7.6 g/dL (6.6-8.7)
--- NOTE | 2022-09-26 08:42 | CT_ITS ---
WS: [id number] CT HEAD NONCONTRAST HISTORY: Elevated blood pressure headache x1 week TECHNIQUE: Contiguous axial imaging performed through the brain in 2.5 mm imaging. Bone and soft tiss ue windows. Sagittal and coronal reformats reviewed. All CT scans at [facility] use at least one of these dose optimization techniques: automated exposure control; mA and/or kV adjustment per pa tient size (includes targeted exams where dose is matched to clinical indication); or iterative recon struction. DLP: 1091.18 mGy.cm COMPARISON: None available. No acute intracranial hemorrhage, midline shift or mass effect. Mild atrophy and mild small vessel ischemic disease in the periventricular white matter. No prior inf arct. Small arachnoid cyst anterior LEFT middle cranial fossa. Ventricles: Normal size with no hydrocephalus. Calcification is scattered throughout the vertebral arteries and also moderately throughout the intra cranial carotid arteries. Paranasal sinuses: As visualized are clear. Mastoid air cells: Well pneumatized. Calvarium and scalp: Skull is intact with no soft tissue edema or swelling. CT/CT head wo con* [id number] IMPRESSION: 1. No acute intracranial hemorrhage or edema. 2. Mild atrophy and small vessel ischemic disease. 3. Moderate atherosclerotic calcified plaque in the vertebral arteries and int racranial carotid arteries.
[2022-09-26 09:00] VITALS: BP 156/75; PULSE 68; RESP 13; O2SAT 98
--- NOTE | 2022-09-26 09:20 | PC.NURSE ---
PT PLACED ON CONTINUOUS NIBP, SPO2, AND CM
[2022-09-26 09:46] VITALS: BP 129/79; PULSE 68; RESP 19; O2SAT 99
== END 2022-09-26 09:48 | disposition home or self-care (01) ==
PROVIDERS: Emergency Provider Family Medicine; PCP Nurse Practitioner Family
DX: I10 Essential (primary) hypertension (principal); I25.10 Atherosclerotic heart disease of native coronary artery without angina pectoris; E11.9 Type 2 diabetes mellitus without complications; E78.5 Hyperlipidemia, unspecified
CPT/HCPCS: 70450; 71045; 80053; 85025; 93005; 96374; 99285; J0360